=== PATIENT | male | born 1975 | race Caucasian/White ===

== ENCOUNTER 2018-12-01 15:01 | Emergency (ER) | payer MEDICAID ==
[~2018-12-01] VITALS: Ht 170.2 cm; Wt 70.3 kg
[2018-12-01 15:08] VITALS: BP 124/68
--- NOTE | 2018-12-01 17:30 | NUR ---
PT NO LONGER IN THE WAITING ROOM.
--- NOTE | 2018-12-01 17:32 | NUR ---
PT LEFT WITHOUT BEING SEEN BY ED PROVIDED.
== END 2018-12-01 17:33 | disposition home or self-care (01) ==
LOC: ER 15:09
DX: Z53.21 Procedure and treatment not carried out due to patient leaving prior to being seen by health care provider (principal); K64.9 Unspecified hemorrhoids